=== PATIENT | male | born 1955 | race Caucasian/White ===

== ENCOUNTER 2021-04-11 14:59 | Emergency (ER) | payer MEDICARE, MEDICAID ==
[~2021-04-11] VITALS: Ht 185.4 cm; Wt 88.0 kg
[2021-04-11] MEDS ORDERED: KETOROLAC 30 MG/1 ML IM ONE (15:30)
[2021-04-11] MEDS ORDERED: DIAZEPAM 5 MG TABLET PO ONE (15:30)
--- NOTE | 2021-04-11 15:30 | NUR ---
PT C/O OF LBP FOR 3 WEEKS, WHEN STANDS ERECT, PT HAS INCREASED PAIN. LAST NIGHT PAIN INCREASED TO POINT PT HAD DIFFICULTY AMBULATING. PAIN CURRENTLY /.
--- NOTE | 2021-04-11 15:34 | NUR ---
PT DENIES TAKING ANY DAILY MEDICATION.
[2021-04-11] MEDS ORDERED: KETOROLAC 30 MG/1 ML ONE (15:37)
[2021-04-11] MEDS ORDERED: DIAZEPAM 5 MG TABLET ONE (15:37)
--- NOTE | 2021-04-11 16:23 | NUR ---
PT GONE TO XRAY
--- NOTE | 2021-04-11 16:33 | NUR ---
PT RETURNED TO ROOM, HOOKED BACK UP TO VS MACHINE. VSS. LIDIA. PT INSTRUCTED WE NEED SAMPLE, PROVIDED URINAL AND ASKED HIM TO TRY.
--- NOTE | 2021-04-11 17:15 | NUR ---
PT RESTING IN BED COMFORTABLY. NADN. NO NEEDS. CALL LIGHT WITHIN REACH.
[2021-04-11 17:23] LABS: MICROSCOPIC NOT IND
[2021-04-11 17:24] VITALS: BP 140/76
== END 2021-04-11 17:57 | disposition home or self-care (01) ==
LOC: ED 17:50
DX: S22.059A Unspecified fracture of T5-T6 vertebra, initial encounter for closed fracture (principal); M51.36 Other intervertebral disc degeneration, lumbar region; F17.210 Nicotine dependence, cigarettes, uncomplicated; Z87.442 Personal history of urinary calculi; X58.XXXA Exposure to other specified factors, initial encounter; Y93.89 Activity, other specified; Y92.89 Other specified places as the place of occurrence of the external cause; Y99.8 Other external cause status
CPT/HCPCS: 72072; 72110; 81003; 96372; 99285; J1885